=== PATIENT | male | born 1995 | race Asian ===

== ENCOUNTER 2017-06-29 20:37 | Emergency (ER) | payer OTHER ==
[2017-06-29] MEDS ORDERED: SODIUM CHLORIDE 0.9% 1,000 ML IV ONE (21:00)
[2017-06-29] MEDS ORDERED: ONDANSETRON 4 MG/2 ML VIAL IVP STA (21:00)
[2017-06-29] MEDS ORDERED: DICYCLOMINE 10 MG CAPSULE PO STA (21:01)
[2017-06-29 22:09] VITALS: BP 134/74
--- NOTE | 2017-06-29 22:15 | ED Physician Documentation ---
PD HPI NVD - Stated complaint Stated Complaint: ABD PAIN/VOMITING - Chief complaint Chief Complaint: Abd Pain - History obtained from History obtained from: Patient - History of Present Illness Timing - onset: Today Timing - details: Gradual onset, Still present Associated symptoms: Abdominal pain Contributing factors: Bad food Similar symptoms before: Has not had sx before Recently seen: Not recently seen - Additonal information Additional information: Patient is a 21 year old male with no significant past medical history who is presenting to the emergency department for nausea, vomiting and diarrhea. patient states that he ate some seafood yesterday and today had multiple episodes of both diarrhea and vomiting. Review of Systems Constitutional: denies: Fever, Chills Eyes: reports: Reviewed and negative Ears: reports: Reviewed and negative Nose: reports: Reviewed and negative Throat: reports: Reviewed and negative Cardiac: denies: Chest pain / pressure, Palpitations Respiratory: denies: Dyspnea, Cough, Wheezing GI: reports: Abdominal Pain, Nausea, Vomiting, Diarrhea. denies: Bloody / black stool : reports: Reviewed and negative Skin: denies: Rash, Lesions Neurologic: denies: Generalized weakness, Focal weakness, Near syncope, Syncope Psychiatric: reports: Reviewed and negative Endocrine: reports: Reviewed and negative Immunocompromised: denies: Immunocompromised PD PAST MEDICAL HISTORY - Past Medical History Past Medical History: No - Past Surgical History Past Surgical History: Yes - Present Medications Home Medications: Ambulatory Orders Medication Instructions Recorded Confirmed Ondansetron Odt [Zofran] 4 mg TL Q6H PRN #20 tablet 06/29/17 - Allergies Allergies/Adverse Reactions: Allergies Allergy/AdvReac Type Severity Reaction Status Date / Time No Known Drug Allergies Allergy Verified 06/29/17 20:44 - Social History Does the pt smoke?: Yes Smoking Status: Current every day smoker Does the pt drink ETOH?: Yes Does the pt have substance abuse?: No - Immunizations Immunizations are current?: Yes PD ED PE NORMAL - Vitals Vital signs reviewed: Yes - General General: Alert and oriented X 3, Well developed/nourished - HEENT HEENT: Atraumatic, PERRL - Neck Neck: Supple, no meningeal sign, No JVD - Cardiac Cardiac: RRR, No murmur - Respiratory Respiratory: No respiratory distress - Derm Derm: Normal color, Warm and dry, No rash - Extremities Extremities: No deformity - Neuro Neuro: Alert and oriented X 3, No motor deficit, No sensory deficit, Normal speech PD ED PE EXPANDED - HEENT HEENT: Dry mucous membranes - Abdomen Abdomen: Hyperactive BS. No: Tender to palpation, Rebound, Guarding Results - Vitals Vitals: Vital Signs - 24 hr 06/29/17 06/29/17 20:43 22:08 Temperature 37.2 C Heart Rate 106 H 92 Respiratory 18 18 Rate Blood Pressure 146/91 H 134/74 H O2 Saturation 99 99 Oxygen O2 Source Room air PD MEDICAL DECISION MAKING - ED course Complexity details: reviewed old records, reviewed results, re-evaluated patient , d/w patient ED course: Patient was seen and examined at bedside. patient was treated with zofran and fluid bolus. patient had no episodes of diarrhea or vomiting while he was here. Patient required work up and was table for discharge with outpatient follow up. Departure - Departure Disposition: Home, Self Care Clinical Impression: Gastroenteritis Condition: Good Instructions: ED Gastroenteritis Bacterial Follow-Up: primary,care provider [Other] - As Needed Prescriptions: Ondansetron Odt [Zofran] 4 mg TL Q6H PRN #20 tablet PRN Reason: Nausea / Vomiting Comments: Your symptoms today are being caused by gastroenteritis. It is likely secondary from the food you ate. It should get better over the next couple of days. You should take zofran as needed for nausea and stay well hydrated with gatorade or other electrolyte solution. You can take amodium as needed for diarrhea. You should follow up with your doctor if symptoms persist. You may return to the emergency department at any time for new, worsening or uncontrollable sympotms. Forms: Activity restrictions
== END 2017-06-29 22:18 | disposition home or self-care (01) ==
LOC: ED 20:37
DX: K52.9 Noninfective gastroenteritis and colitis, unspecified (principal); F17.200 Nicotine dependence, unspecified, uncomplicated
CPT/HCPCS: 96361; 96374; 99283; 99284; A9270

== ENCOUNTER 2018-05-02 22:43 | Emergency (ER) | payer OTHER ==
[2018-05-02] MEDS ORDERED: IBUPROFEN 400 MG TABLET PO STA (22:59)
[2018-05-02] MEDS ORDERED: ACETAMINOPHEN 325 MG TABLET PO STA (22:59)
--- NOTE | 2018-05-02 23:02 | ED Physician Documentation ---
History of Present Illness - Stated complaint Stated Complaint: L WRIST INJ/GLF - Chief complaint Chief Complaint: Trauma Ext - Additonal information Additional information: hx from pt 22 male slipped and fell injured L wrist abrasion to R elbow bruise to right knee no head neck injury Review of Systems Skin: reports: Abrasion (s) Musculoskeletal: reports: Joint pain. denies: Neck pain Neurologic: denies: Headache Endocrine: denies: Easy bruising / bleeding Immunocompromised: denies: Immunocompromised PD PAST MEDICAL HISTORY - Past Surgical History Past Surgical History: Yes - Allergies Allergies/Adverse Reactions: Allergies Allergy/AdvReac Type Severity Reaction Status Date / Time No Known Drug Allergies Allergy Verified 05/02/18 22:52 - Social History Does the pt smoke?: Yes Smoking Status: Current every day smoker Does the pt drink ETOH?: Yes Does the pt have substance abuse?: No - Immunizations Immunizations are current?: Yes PD ED PE NORMAL - Vitals Vital signs reviewed: Yes - General General: Alert and oriented X 3 - HEENT HEENT: Atraumatic - Neck Neck: No bony TTP - Cardiac Cardiac: RRR - Respiratory Respiratory: No respiratory distress, Clear bilaterally - Extremities Extremities: Other (L wrist s defority, TTP radius just proximal to wrist through 1st and 2nf MT, less tender ulnar aspect, MSV intact though hurts to move. L elbow already dressed he states just an abrasion, R knee no visible bruise or deformity, full ROM, no laxity, MSV intact) - Neuro Neuro: Alert and oriented X 3 Results - Vitals Vitals: Vital Signs - 24 hr 05/02/18 22:47 Temperature 37 C Heart Rate 78 Respiratory 16 Rate Blood Pressure 143/76 H O2 Saturation 97 Oxygen O2 Source Room air Departure - Departure Disposition: 01 Home, Self Care Clinical Impression: Left wrist sprain Qualifiers: Encounter type: initial encounter Qualified Code(s): S63.502A - Unspecified sprain of left wrist, initial encounter Condition: Good Instructions: ED Sprain Wrist Follow-Up: RICHA Dalal [Provider Group] Comments: Thankfully the xray does not show any fracture This is likely a bad sprain Please wear the splint we gave you for a week Then may start using the wrist again as tolerated Motrin and tylenol for the pain. Ice and elevation for the swelling If still painful in 2 weeks please see your PMD for repeat xrays - sometimes small fractures in the wrist bones cannot be seen on initial imaging but become more apparent over a longer period of time - especially a bone called the scaphoid Forms: Activity restrictions
--- NOTE | 2018-05-02 23:21 | XRAY Report ---
Reason: pain, swelling after GLF Procedure Date: 05/02/2018 Accession Number: [id number] / [id number] Procedure: XR - Wrist 4 View LT CPT Code: FULL RESULT: EXAM: LEFT WRIST RADIOGRAPHY EXAM DATE: 05/02/2018 11:05 PM. CLINICAL HISTORY: Pain, swelling after a ground-level fall. COMPARISON: None. TECHNIQUE: 4 views. FINDINGS: Bones: Normal. No fractures or bone lesions. Joints: Normal. No subluxations. Soft Tissues: Normal. No soft tissue swelling. IMPRESSION: Normal wrist radiography. [facility]
[2018-05-02 23:35] VITALS: BP 114/99
== END 2018-05-02 23:35 | disposition home or self-care (01) ==
LOC: ED 22:43
DX: S63.502A Unspecified sprain of left wrist, initial encounter (principal); W01.10XA Fall on same level from slipping, tripping and stumbling with subsequent striking against unspecified object, initial encounter; F17.200 Nicotine dependence, unspecified, uncomplicated; Y93.01 Activity, walking, marching and hiking
CPT/HCPCS: 73110; 99282; 99283; A9270